=== PATIENT | female | born 2000 | race Caucasian/White ===

== ENCOUNTER 2024-01-31 20:10 | Emergency (ER) | payer BC | END 2024-01-31 20:18 | disposition left against medical advice (07) | LOC: FER 20:10 | DX: R11.0 Nausea (principal); R53.81 Other malaise | CPT/HCPCS: 99281-25 ==

== ENCOUNTER 2024-10-29 11:11 | Day surgery (SDC) | payer BC ==
[2024-10-29] MEDS: IRON SUCROSE INJECTION 200 MG in SODIUM CHLORIDE 100 ML IVPB ONE (11:40)
[2024-10-29 14:57] VITALS: BP 120/85; PULSE 85; RESP 16; TEMP 98.2
== END 2024-10-29 14:57 | disposition home or self-care (01) ==
LOC: FINFUSION 11:11 → FM/S 11:12 → FINFUSION 14:57
PROVIDERS: ATTEND Obstetrics & Gynecology
PROC: 3E033GC Introduction of Other Therapeutic Substance into Peripheral Vein, Percutaneous Approach (ICD-10-PCS; principal; 2024-10-29)
DX: O99.013 Anemia complicating pregnancy, third trimester (principal); Z3A.40 40 weeks gestation of pregnancy; D64.9 Anemia, unspecified
CPT/HCPCS: 96365; J1756

== ENCOUNTER 2024-11-05 11:15 | Day surgery (SDC) | payer BC ==
[2024-11-05] MEDS: IRON SUCROSE COMPLEX 200 MG in SODIUM CHLORIDE 100 ML IVPB ONE (11:42)
[2024-11-05 13:20] VITALS: BP 118/79; PULSE 89; RESP 18; TEMP 98.9
== END 2024-11-05 13:20 | disposition home or self-care (01) ==
LOC: FINFUSION 11:15 → FM/S 11:16 → FINFUSION 13:20
PROVIDERS: ATTEND Obstetrics & Gynecology
PROC: 3E033GC Introduction of Other Therapeutic Substance into Peripheral Vein, Percutaneous Approach (ICD-10-PCS; principal; 2024-11-05)
DX: O99.013 Anemia complicating pregnancy, third trimester (principal); Z3A.40 40 weeks gestation of pregnancy; D64.9 Anemia, unspecified
CPT/HCPCS: 96365

== ENCOUNTER 2024-11-14 07:15 | Inpatient (IN) | payer BC ==
[2024-11-14] MEDS: ELECTROLYTE-148 SOLN 1,000 ML IV SCH (09:30)
[2024-11-14 09:38] LABS: ABSOLUTE IMMATURE GRANULOCYTES 0.02 x10^3/uL (0.0-0.031); BASOPHILS # 0.01 x10^3/uL (0.01-0.08); EOSINOPHIL % 0.3 % (0.7-5.8); EOSINOPHILS # 0.02 x10^3/uL (0.04-0.36); MCHC 32.4 g/dl (32.2-35.5); MEAN CELL VOLUME 78.3 fl (79.4-94.8); MEAN PLT VOLUME 10.6 fl (9.4-12.3); MONOCYTE # 0.60 x10^3/uL (0.24-0.86); MONOCYTE % 8.6 % (4.7-12.5); RDW 17.8 % (12.1-16.5)
[2024-11-14 09:40] LABS: INR 0.97 (0.83-1.09); PROTHROMBIN TIME (PATIENT) 10.6 SEC (9.7-13.0)
[2024-11-14 09:43] LABS: ACTIVATED PTT 25.6 SECONDS (25.2-36.5)
[2024-11-14 09:45] LABS: CO2 22 mmol/L (21-32); GLUCOSE,RANDOM 86 mg/dL (74-106)
[2024-11-14 09:49] LABS: CREATININE 0.4 mg/dL (0.55-1.3)
[2024-11-14 09:51] LABS: SGOT/AST 14.0 U/L (15-37); SGPT/ALT 10.0 U/L (13-61)
[2024-11-14] MEDS: OXYTOCIN 30 UNITS in 0.9% NS 30 UNIT/500 ML INFUS.BAG IVPB SCH (10:00)
[2024-11-14] MEDS ORDERED: OXYTOCIN 30 UNITS in 0.9% NS 30 UNIT/500 ML INFUS.BAG IVPB ONE (10:07)
[2024-11-14 10:37] VITALS: BMI 31.6
[2024-11-14] MEDS ORDERED: FENTANYL/BUPIVACAINE/NS/PF - PCEA - 50 ML DISP.SYRIN EP ONE ×2 (12:58→16:27)
[2024-11-14] MEDS: FENTANYL/BUPIVACAINE/NS/PF - PCEA - 50 ML DISP.SYRIN EP SCH (13:16)
[2024-11-14] MEDS ORDERED: NALOXONE HCL 0.4 MG/ML VIAL IVPUSH PRN (13:45)
[2024-11-14] MEDS ORDERED: OXYTOCIN 20 UNITS in 0.9% NS 20 UNIT/1,000 ML INFUS.BAG IV ONE (18:28)
[2024-11-14] MEDS ORDERED: LIDOCAINE HCL 1% PRESERVATIVE FREE - 30ML VIAL ONE (20:06)
[2024-11-14] MEDS: OXYTOCIN 20 UNITS in 0.9% NS 20 UNIT/1,000 ML INFUS.BAG IV SCH (20:10)
[2024-11-14] MEDS ORDERED: IBUPROFEN 600 MG TABLET (FP) PO ONE (20:38)
[2024-11-14] MEDS: IBUPROFEN 600 MG TABLET (FP) PO PRN (20:40)
[2024-11-14 20:42] LABS: CORD BASE EXCESS -8.3 mmol/L (0-2); CORD HCO3 18.3 mmHg (20-29); CORD PCO2 41.3 mmHg (30-78); CORD pH 7.264 (7.14-7.44)
[2024-11-14] MEDS ORDERED: BISACODYL 10 MG SUPP.RECT RC PRN (20:49)
[2024-11-14] MEDS ORDERED: BENZOCAINE 28 GM HEMORRHOIDAL OINTMENT TP PRN (20:49)
[2024-11-14] MEDS ORDERED: METHYLERGONOVINE MALEATE 0.2 MG/1 ML AMP IM PRN (20:49)
[2024-11-14] MEDS ORDERED: WITCH HAZEL 50% (TUCKS) 40 PAD/JAR PAD TP PRN (20:49)
[2024-11-14] MEDS ORDERED: BENZOCAINE 20% 57 GM BOTTLE TP PRN (20:49)
[2024-11-14 21:24] VITALS: RESP 18
[2024-11-15 07:51] LABS: ABSOLUTE IMMATURE GRANULOCYTES 0.06 x10^3/uL (0.0-0.031); BASOPHILS # 0.02 x10^3/uL (0.01-0.08); EOSINOPHIL % 0.1 % (0.7-5.8); EOSINOPHILS # 0.01 x10^3/uL (0.04-0.36); MCHC 33.1 g/dl (32.2-35.5); MEAN CELL VOLUME 79.1 fl (79.4-94.8); MEAN PLT VOLUME 10.6 fl (9.4-12.3); MONOCYTE # 1.11 x10^3/uL (0.24-0.86); MONOCYTE % 8.1 % (4.7-12.5); RDW 18.2 % (12.1-16.5)
[2024-11-15] MEDS: ACETAMINOPHEN 325 MG TABLET (FP) PO PRN (23:50)
[2024-11-15] MEDS: SENNOSIDES/DOCUSATE COMBO (SENNA PLUS) TABLET (UD) PO PRN (23:51)
[2024-11-16 13:33] VITALS: BP 120/78; PULSE 81; TEMP 98
== END 2024-11-16 13:00 | disposition home or self-care (01) | DRG 807 ==
LOC: JLDR 07:15 → J3W 23:11
PROVIDERS: ADMIT Obstetrics & Gynecology; ATTEND Obstetrics & Gynecology
PROC: 10E0XZZ Delivery of Products of Conception, External Approach (ICD-10-PCS; principal; 2024-11-14)
PROC: 0W8NXZZ Division of Female Perineum, External Approach (ICD-10-PCS; 2024-11-14)
DX: O48.0 Post-term pregnancy (principal); Z37.0 Single live birth; Z3A.41 41 weeks gestation of pregnancy
CPT/HCPCS: 36415; 36600; 59409; 80048; 82803; 82977; 83010; 84450; 84460; 84550; 85025; 85032; 85610; 85730; 86780; 86850; 86900; 86901; 87340